=== PATIENT | male | born 1985 | race African-American/Black ===

== ENCOUNTER 2020-01-01 21:58 | Emergency (ER) | payer MEDICAID, MEDICARE ==
[~2020-01-01] VITALS: Ht 182.9 cm; Wt 73.0 kg
[2020-01-01 22:00] VITALS: BP 126/78
== END 2020-01-01 22:57 | disposition left against medical advice (07) ==
LOC: ER 21:58
DX: R53.1 Weakness (principal); Z53.21 Procedure and treatment not carried out due to patient leaving prior to being seen by health care provider